=== PATIENT | female | born 1960 | race Caucasian/White ===

== ENCOUNTER 2018-03-01 15:32 | Emergency (ER) | payer OTHER ==
[~2018-03-01] VITALS: Ht 157.5 cm; Wt 80.0 kg
[2018-03-01 16:04] VITALS: BP 167/91
== END 2018-03-01 21:45 | disposition left against medical advice (07) ==
LOC: ER 15:32
DX: R10.30 Lower abdominal pain, unspecified (principal); N23 Unspecified renal colic; R11.10 Vomiting, unspecified; R53.1 Weakness; I10 Essential (primary) hypertension; N28.9 Disorder of kidney and ureter, unspecified; Z90.12 Acquired absence of left breast and nipple; Z53.21 Procedure and treatment not carried out due to patient leaving prior to being seen by health care provider